=== PATIENT | male | born 1970 | race Caucasian/White ===

== ENCOUNTER 2018-02-22 11:40 | Emergency (ER) | payer OTHER ==
--- NOTE | 2018-02-22 11:53 | ED ---
Lower Extremity - HPI Summary HPI Summary: Patient is a 47-year-old male who presents emergency department for a right knee pain. Patient states about 2 weeks ago he jumped off of a stage and twisted right knee. Pain is intermittent since and then last night when he stood up from the toilet he felt worsening pain to his right knee and isn't having difficulty fully straightening the. Remote history of ACL tear with repair. Unable to bear weight secondary to pain. Symptoms are mild in severity. Moving and walking makes symptoms worse. Rest makes symptoms better. - History of Current Complaint Chief Complaint: EDExtremityLower Stated Complaint: RT KNEE INJURY Time Seen by Provider: 02/22/18 11:53 Hx Obtained From: Patient Pain Intensity: 3 PMH/Surg Hx/FS Hx/Imm Hx Previously Healthy: Yes Infectious Disease History: No Infectious Disease History: Denies: Traveled Outside the [place] in Last 30 Days - Family History Known Family History: Positive: Other - noncontributory - Social History Occupation: Employed Part-time Lives: With Family Review of Systems Positive: Other - right knee pain Skin: Negative Negative: Weakness, Paresthesia, Numbness All Other Systems Reviewed And Are Negative: Yes Physical Exam Triage Information Reviewed: Yes Vital Signs On Initial Exam: Initial Vitals Temp Pulse Resp BP Pulse Ox 98.6 F 84 17 152/87 97 02/22/18 11:41 02/22/18 11:41 02/22/18 11:41 02/22/18 11:41 02/22/18 11:41 Vital Signs Reviewed: Yes Appearance: Positive: Well-Appearing - Pt. sitting on bed in NAD. Skin: Positive: Warm, Dry Head/Face: Positive: Normal Head/Face Inspection Eyes: Positive: Normal, EOMI Neck: Positive: Supple Musculoskeletal: Positive: Other - Mild swelling noted to the right knee under patella. No increased warmth or erythema. Diffuse lower pain of the knee. No increase in laxity and again pain with attempting to extend the knee. Good palpable pedal pulse. No proximal or distal injuries. Neurological: Positive: Normal, CN Intact II-III Psychiatric: Positive: Affect/Mood Appropriate Procedures - Splinting Right Lower Extremity Pre-Made Type: knee immobilizer Pre-Proc Neuro Vasc Exam: normal Post-Proc Neuro Vasc Exam: normal Diagnostics - Vital Signs Vital Signs Temp Pulse Resp BP Pulse Ox 02/22/18 11:41 98.6 F 84 17 152/87 97 - Laboratory Lab Statement: Any lab studies that have been ordered have been reviewed, and results considered in the medical decision making process. Lower Extremity Course/Dx - Course Course Of Treatment: Pt. presenting with right knee injury. Xray read per radiology: IMPRESSION: 1. LARGE JOINT EFFUSION, NO FRACTURE IS SEEN. 2. STATUS POST ANTERIOR CRUCIATE LIGAMENT REPAIR. 3. CHONDROCALCINOSIS AND MILD TO MODERATE OSTEOARTHRITIC CHANGE. Results discussed. Knee immobilizer. Pt. has crutches with him from home. I call orthopedic clinic for f.u and clinic will call pt. today for apt. To ice and elevate. Pt. understands and agrees with plan. - Diagnoses Differential Diagnosis/HQI/PQRI: Positive: Contusion, Fracture (Closed), Sprain , Strain Provider Diagnoses: Knee effusion Discharge - Sign-Out/Discharge Documenting (check all that apply): Patient Departure - Discharge Plan Condition: Good Disposition: HOME Patient Education Materials: Swollen Knee Joint (ED), Knee Pain (ED) Referrals: [facility] [Outside] [facility] [Outside] Ysabel Moreno MD [Medical Doctor] - Additional Instructions: Dr. Moreno's office will call you today for an appointment date Use crutches and immobilizer Ice and elevate NSAIDS for pain as directed - Billing Disposition and Condition Condition: GOOD Disposition: Home
[2018-02-22 13:51] VITALS: BP 127/80
== END 2018-02-22 13:30 | disposition home or self-care (01) ==
LOC: ED 11:40
DX: M25.461 Effusion, right knee (principal); M11.261 Other chondrocalcinosis, right knee
CPT/HCPCS: 99282

== ENCOUNTER 2018-06-27 10:28 | Emergency (ER) | payer BC, OTHER ==
[2018-06-27 11:21] VITALS: BP 137/80
--- NOTE | 2018-06-27 12:10 | UC ---
UC General HPI - HPI Summary HPI Summary: Pleasant 48 yo gentleman c/o approx 2 weeks dysuria, freq /urg. Some dyscomfort with urination. No rash. No abd pain. No fever / chills. No sob / cp. Denies hx similar. Reports some additional diarrhea. - History of Current Complaint Chief Complaint: UCGU Stated Complaint: URINARY ISSUE Time Seen by Provider: 06/27/18 12:08 Hx Obtained From: Patient Pain Intensity: 1 - Allergy/Home Medications Allergies/Adverse Reactions: Allergies Allergy/AdvReac Type Severity Reaction Status Date / Time nickel Allergy Rash Verified 06/27/18 11:21 Penicillins Allergy A CHILD Verified 06/27/18 11:21 Home Medications: Home Medications Cranberry Conc/C/Bacill Coag [Cranberry Tablet] 1 each PO ONCE PRN 06/27/18 [ History Confirmed 06/27/18] PMH/Surg Hx/FS Hx/Imm Hx Previously Healthy: Yes - Surgical History Surgical History: Yes Surgery Procedure, Year, and Place: RIGHT KNEE ACL REPAIR. LEFT KNEE. ADENOIDS. vasectomy - Family History Known Family History: Positive: Other - noncontributory - Social History Alcohol Use: Weekly Substance Use Type: Marijuana Substance Use Comment - Amount & Last Used: occasional Smoking Status (MU): Never Smoked Tobacco Review of Systems All Other Systems Reviewed And Are Negative: Yes Constitutional: Positive: Other - see hpi Skin: Positive: Negative Eyes: Positive: Negative ENT: Positive: Negative Respiratory: Positive: Negative Cardiovascular: Positive: Negative Gastrointestinal: Positive: Negative Genitourinary: Positive: Other - see hpi Motor: Positive: Negative Neurovascular: Positive: Negative Musculoskeletal: Positive: Negative Neurological: Positive: Negative Psychological: Positive: Negative Is Patient Immunocompromised?: No Physical Exam Triage Information Reviewed: Yes Appearance: Well-Appearing, Well-Nourished Vital Signs: Initial Vital Signs Temp 98.9 F 06/27/18 11:15 Pulse 73 06/27/18 11:15 Resp 18 06/27/18 11:15 BP 137/80 06/27/18 11:15 Pulse Ox 99 06/27/18 11:15 Vital Signs Reviewed: Yes Eye Exam: Normal - grossly nonfocal ENT Exam: Normal - grossly nonfocal Neck exam: Normal Neck: Positive: Supple Respiratory Exam: Normal Cardiovascular Exam: Normal Abdominal Exam: Normal, Other - no cvat denies specific testicular discomfort, nor penile / groin lesions / penile d/c Abdomen Description: Positive: Nontender Musculoskeletal Exam: Normal Neurological Exam: Normal - grossly nonfocal Psychological Exam: Normal - conversing easily and appropriately. Skin Exam: Normal - no visible or reported rash Course/Dx - Course Course Of Treatment: Reviewed pt s/sx and urine dip. Cx will be sent. S/sx c/w urethritis, however , reviewed the importance of f/u with PCP. Reviewed importance for recheck if problems. Questions answered to the best of my ability. - Diagnoses Provider Diagnosis: Urethritis Discharge - Sign-Out/Discharge Documenting (check all that apply): Patient Departure All imaging exams completed and their final reports reviewed: No Studies - Discharge Plan Condition: Stable Disposition: HOME Prescriptions: Ciprofloxacin TAB* [Cipro 500 MG TAB*] 500 mg PO BID #20 tab Fluconazole [Diflucan 150 MG (NF)] 150 mg PO DAILY #2 tab Phenazopyridine 200 mg (NF) [Pyridium 200 MG tab *] 200 mg PO TID PRN #15 tab PRN Reason: Pain Patient Education Materials: Nonspecific Urethritis in Men (ED), Urinary Tract Infection in Men (ED) Referrals: [facility] [place] [Outside] No Primary Care Phys,NOPCP [Primary Care Provider] - Additional Instructions: Drink plenty of fluids. You have a urine culture in the lab. Please follow up with a primary care physician when able, recommend in the next month. Seek medical attention for worse or new problems. - Billing Disposition and Condition Condition: STABLE Disposition: Home
== END 2018-06-27 12:45 | disposition home or self-care (01) ==
LOC: UCEAST 10:28
DX: N34.2 Other urethritis (principal); R19.7 Diarrhea, unspecified; Z88.0 Allergy status to penicillin; Z91.048 Other nonmedicinal substance allergy status
CPT/HCPCS: 81003; 87086; 99212; G0463